=== PATIENT | male | born 1960 ===

== ENCOUNTER 2019-03-07 08:31 | Outpatient (CLI) | payer OTHER | END 2019-03-07 08:33 | disposition home or self-care (01) | LOC: SONOGRAMA 08:31 → MAMO-SONO 08:45 | DX: M25.522 Pain in left elbow (principal) ==

== ENCOUNTER 2019-12-01 08:23 | Emergency (ER) | payer BC ==
[~2019-12-01] VITALS: Ht 177.8 cm; Wt 77.1 kg
[2019-12-01] MEDS ORDERED: ZANAFLEX4 MG (08:32)
[2019-12-01] MEDS ORDERED: LODINE300 MG (08:33)
== END 2019-12-01 10:36 | disposition home or self-care (01) ==
LOC: ER 08:23
DX: S86.812A Strain of other muscle(s) and tendon(s) at lower leg level, left leg, initial encounter (principal); S86.811A Strain of other muscle(s) and tendon(s) at lower leg level, right leg, initial encounter; X50.9XXA Other and unspecified overexertion or strenuous movements or postures, initial encounter; Y93.89 Activity, other specified; Y92.89 Other specified places as the place of occurrence of the external cause; Y99.8 Other external cause status

== ENCOUNTER 2019-12-03 14:23 | Outpatient (CLI) | payer OTHER ==
[~2019-12-03 14:23] MED LIST: LODINE300 MG; ZANAFLEX4 MG
== END 2019-12-03 14:30 | disposition home or self-care (01) ==
LOC: SONOGRAMA 14:23
DX: M25.552 Pain in left hip (principal); M67.854 Other specified disorders of tendon, left hip

== ENCOUNTER 2021-09-15 08:04 | Outpatient (CLI) | payer OTHER | END 2021-09-15 08:11 | disposition home or self-care (01) | LOC: SONOGRAMA 08:04 | DX: M25.542 Pain in joints of left hand (principal) ==

== ENCOUNTER 2023-03-16 13:04 | Outpatient (CLI) | payer BC | END 2023-03-16 13:05 | disposition home or self-care (01) | LOC: SONOGRAMA 13:04 | PROVIDERS: ATTEND General Practice | DX: E04.9 Nontoxic goiter, unspecified (principal); M54.2 Cervicalgia; R22.1 Localized swelling, mass and lump, neck ==

== ENCOUNTER 2023-04-18 10:58 | Outpatient (CLI) | payer BC | END 2023-04-18 10:59 | disposition home or self-care (01) | LOC: LAB 10:58 | PROVIDERS: ATTEND Radiology Diagnostic Radiology | DX: R59.0 Localized enlarged lymph nodes (principal) ==

== ENCOUNTER 2023-04-19 11:27 | Outpatient (CLI) | payer BC | END 2023-04-19 11:45 | disposition home or self-care (01) | LOC: TOM 11:27 | DX: R59.0 Localized enlarged lymph nodes (principal); R13.14 Dysphagia, pharyngoesophageal phase ==